=== PATIENT | male | born 1955 | race Caucasian/White ===

== ENCOUNTER 2020-02-09 14:56 | Day surgery (SDC) | payer MEDICARE ==
[2020-02-06 15:42] LABS: BASOPHILS # (AUTO) 0.1 X10'3 (0-0.2); BASOPHILS % (AUTO) 0.8 % (0-1); EOSINOPHILS # (AUTO) 0.1 X10'3 (0-0.9); EOSINOPHILS % (AUTO) 1.5 % (0-6); HEMOGLOBIN 14.1 g/dl (14.0-17.9); LYMPHOCYTES # (AUTO) 1.8 X10'3 (1.1-4.8); LYMPHOCYTES % (AUTO) 25.7 % (21-51); MEAN CORPUSCULAR HGB CONC 33.5 g/dL (33.0-36.5); MEAN CORPUSCULAR VOLUME 89.4 FL (78-98); MEAN PLATELET VOLUME 11.3 FL (7.4-10.4); MONOCYTES # (AUTO) 0.5 X10'3 (0-0.9); NEUTROPHILS # (AUTO) 4.4 X10'3 (1.8-7.7); PLATELET COUNT 185 X10'3 (140-440); RED BLOOD COUNT 4.69 X10'6 (4.70-6.10); RED CELL DISTRIBUTION WIDTH 13.5 % (11.5-14.5); WHITE BLOOD COUNT 6.8 X10'3 (4.5-11.0)
[2020-02-06 15:44] LABS: ALBUMIN 3.6 G/DL (3.4-5.0); ANION GAP 5 (8-16); BLOOD UREA NITROGEN 14 MG/DL (7-18); BUN/CREATININE RATIO 15.9 (5.4-32.0); CALCIUM 9.3 MG/DL (8.5-10.1); CHLORIDE 102 MMOL/L (99-107); CREATININE 0.88 MG/DL (0.60-1.10); GLUCOSE 357 MG/DL (70-104); POTASSIUM 3.9 MMOL/L (3.5-5.1); SODIUM 137 MMOL/L (135-145); TOTAL CARBON DIOXIDE 29.6 MMOL/L (24-32); eGFR 87 ML/MIN
[2020-02-06 15:46] LABS: PARTIAL THROMBOPLASTIN TIME 28 SECONDS (22-32)
[2020-02-09] VITALS (8 sets, daily range): BP systolic 95–131; BP diastolic 47–82
[~2020-02-09] VITALS: Ht 182.9 cm; Wt 90.3 kg
[2020-02-09] MEDS ORDERED: diphenhydrAMINE 25mg capsule PO PRN (15:15)
[2020-02-09] MEDS ORDERED: normal saline 1,000 ML IV SCH (15:15)
[2020-02-09] MEDS ORDERED: LORazepam 0.5 MG tablet PO PRN (15:15)
[2020-02-09] MEDS ORDERED: LIDOcaine/PRILOcaine 5gm cream TP ONE (15:20)
[2020-02-09] MEDS ORDERED: APIX5TAB3 PO (15:44)
[2020-02-09] MEDS ORDERED: SILD50TA PO (15:44)
[2020-02-09] MEDS ORDERED: INSU100I29 SQ (15:44)
[2020-02-09] MEDS ORDERED: DULO60CA65 PO (15:44)
[2020-02-09] MEDS ORDERED: METF-950 PO (15:44)
[2020-02-09] MEDS ORDERED: FLO0.4C PO (15:44)
[2020-02-09] MEDS ORDERED: fentaNYL/PF 50MCG/1 ML 2ML syringe ONE (17:34)
[2020-02-09] MEDS ORDERED: midazolam 2 mg/2 ml injection ONE (17:34)
[2020-02-09] MEDS ORDERED: heparin 1,000unit/ml 10ml vial 10 ML ONE (17:34)
[2020-02-09] MEDS ORDERED: verapamil 2.5 mg/ml inj IV ONE (17:34)
[2020-02-09] MEDS ORDERED: nitroGLYCERIN-Tridil 50MG/D5W 250 ML IV ONE (17:34)
[2020-02-09] MEDS ORDERED: LIDOcaine 1% (10mg/ml)w/preservative injection 20ml MDV ONE (17:34)
[2020-02-09] MEDS ORDERED: iohexol 350MG/ML 100ml bottle IV ONE ×2 (17:35→18:14)
[2020-02-09] MEDS ORDERED: iohexol 350 MG/ML 50ML vial IV ONE (18:04)
[2020-02-09] MEDS ORDERED: clopidogrel 300mg tablet ONE (18:32)
[2020-02-09] MEDS ORDERED: nitroGLYCERIN 0.4mg SUBLingual tab SL ONE (18:47)
[2020-02-09] MEDS ORDERED: OXAZEpam 15mg capsule PO PRN (19:05)
[2020-02-09] MEDS ORDERED: ondansetron/PF 4mg/2ml inj IV PRN (19:05)
[2020-02-09] MEDS ORDERED: proCHLORperazine 10 MG/2 ml inj IV PRN (19:05)
[2020-02-09] MEDS ORDERED: nitroGLYCERIN 0.4mg SUBLingual tab SL PRN (19:05)
[2020-02-09] MEDS ORDERED: aspirin 81mg tab.chew PO ONE (19:05)
[2020-02-09] MEDS ORDERED: HYDROcodone/acetaminophen 5mg/325mg tablet PO PRN (19:05)
[2020-02-09] MEDS ORDERED: HYDROcodone/acetaminophen 10/325mg tab PO PRN (19:05)
== END 2020-02-09 20:30 | disposition home or self-care (01) ==
LOC: SSTAY O 14:56
PROVIDERS: ATTEND Student in an Organized Health Care Education/Training Program
DX: R94.39 Abnormal result of other cardiovascular function study (principal); I25.10 Atherosclerotic heart disease of native coronary artery without angina pectoris; I10 Essential (primary) hypertension; E78.5 Hyperlipidemia, unspecified; E11.9 Type 2 diabetes mellitus without complications; I48.0 Paroxysmal atrial fibrillation; Z79.899 Other long term (current) drug therapy; Z95.0 Presence of cardiac pacemaker
CPT/HCPCS: 36415; 80048; 82948; 85025; 85610; 85730; 93005; 93458; 99152; 99153; C1725; C1751; C1769; C1874; C1894; C9600; J1644; J2001; J2250; J3010; J7030; Q0163; Q9967; 92920; A4620; A5120; J3490

== ENCOUNTER 2022-02-03 13:50 | Day surgery (SDC) | payer MEDICARE ==
[2022-01-30 09:21] LABS: BASOPHILS # (AUTO) 0.1 X10'3 (0-0.2); BASOPHILS % (AUTO) 0.9 % (0-1); EOSINOPHILS # (AUTO) 0.2 X10'3 (0-0.9); EOSINOPHILS % (AUTO) 2.5 % (0-6); HEMATOCRIT 44.7 % (42.0-52.0); HEMOGLOBIN 15.1 g/dl (14.0-17.9); LYMPHOCYTES # (AUTO) 1.8 X10'3 (1.1-4.8); LYMPHOCYTES % (AUTO) 26.4 % (21-51); MEAN CORPUSCULAR HEMOGLOBIN 30.2 PG (27.0-31.0); MEAN CORPUSCULAR HGB CONC 33.9 g/dL (33.0-36.5); MEAN PLATELET VOLUME 11.1 FL (7.4-10.4); MONOCYTES # (AUTO) 0.6 X10'3 (0-0.9); MONOCYTES % (AUTO) 8.8 % (2-12); NEUTROPHILS # (AUTO) 4.2 X10'3 (1.8-7.7); NEUTROPHILS % (AUTO) 61.4 % (42-75); PLATELET COUNT 176 X10'3 (140-440); RED BLOOD COUNT 5.01 X10'6 (4.70-6.10); RED CELL DISTRIBUTION WIDTH 13.6 % (11.5-14.5); WHITE BLOOD COUNT 6.9 X10'3 (4.5-11.0)
[2022-01-30 09:35] LABS: APTT 29 SECONDS (22-32)
[2022-01-30 09:43] LABS: ALBUMIN 3.8 G/DL (3.4-5.0); ANION GAP 8 (8-16); BLOOD UREA NITROGEN 17 MG/DL (7-18); BUN/CREATININE RATIO 18.7 (5.4-32.0); CALCIUM 9.5 MG/DL (8.5-10.1); CHLORIDE 102 MMOL/L (99-107); CHOLESTEROL 178 MG/DL (0-200); CREATININE 0.91 MG/DL (0.60-1.10); GLUCOSE 173 MG/DL (70-104); HDL CHOLESTEROL 44 MG/DL (35-60); LDL CHOLESTEROL 116 MG/DL (50-100); POTASSIUM 3.7 MMOL/L (3.5-5.1); SODIUM 139 MMOL/L (135-145); TRIGLYCERIDES 85 MG/DL (20-135); eGFR 83 ML/MIN
[2022-01-30 12:03] LABS: LARGE PLATELETS MODERATE; PLATELET ESTIMATE NORMAL
[2022-02-03] VITALS (7 sets, daily range): BP systolic 102–120; BP diastolic 65–95
[~2022-02-03] VITALS: Ht 182.9 cm; Wt 96.3 kg
[~2022-02-03 13:50] MED LIST: APIX5TAB3 PO; DULO60CA65 PO; FLO0.4C PO; INSU100I29 SQ; METF-1203 PO; SILD50TA PO
[2022-02-03] MEDS ORDERED: diphenhydrAMINE 25mg capsule PO PRN (14:20)
[2022-02-03] MEDS ORDERED: LORazepam 0.5 MG tablet PO PRN (14:20)
[2022-02-03] MEDS ORDERED: normal saline 1,000 ML IV SCH (14:20)
[2022-02-03] MEDS ORDERED: EMPA10TA PO (14:33)
[2022-02-03] MEDS ORDERED: METO-384 PO (14:33)
[2022-02-03] MEDS ORDERED: SPIR25TA5 PO (14:33)
[2022-02-03] MEDS ORDERED: METF-436 PO (14:33)
[2022-02-03] MEDS ORDERED: ATOR40TA PO (14:33)
[2022-02-03] MEDS ORDERED: SEMA2PEN SQ (14:33)
[2022-02-03] MEDS ORDERED: LIDOcaine 1% (10mg/ml) 2ml vial ONE (17:47)
[2022-02-03] MEDS ORDERED: fentaNYL/PF 50MCG/1 ML 2ML syringe ONE (17:47)
[2022-02-03] MEDS ORDERED: verapamil 2.5 mg/ml inj IV ONE (17:47)
[2022-02-03] MEDS ORDERED: iohexol 350MG/ML 100ml bottle IV ONE (17:48)
[2022-02-03] MEDS ORDERED: heparin 1,000unit/ml 10ml vial 10 ML ONE (17:48)
[2022-02-03] MEDS ORDERED: nitroGLYCERIN-Tridil 50MG/D5W 250 ML IV ONE (17:48)
[2022-02-03] MEDS ORDERED: midazolam 1 mg/ML 2ml injection ONE (17:48)
[2022-02-03 18:54] LABS: ISTAT HGB ART 13.3 g/dl (14.0-17.9); ISTAT Hct ART 39 %PCV (42-52); ISTAT O2 SATURATION ARTERIAL 92 % (95-98); ISTAT SOURCE ART
[2022-02-03] MEDS ORDERED: HYDROcodone/acetaminophen 10/325mg tab PO PRN (19:40)
[2022-02-03] MEDS ORDERED: HYDROcodone/acetaminophen 5mg/325mg tablet PO PRN (19:40)
[2022-02-04 06:07] LABS: ISTAT Hct MIX 39 %PCV (42-52); ISTAT O2 SATURATION MIX VENOUS 66 % (60-80); ISTAT SOURCE VEN
== END 2022-02-03 21:00 | disposition home or self-care (01) ==
LOC: SSTAY O 13:50
PROVIDERS: ATTEND Student in an Organized Health Care Education/Training Program
DX: R94.39 Abnormal result of other cardiovascular function study (principal); I25.10 Atherosclerotic heart disease of native coronary artery without angina pectoris; I48.0 Paroxysmal atrial fibrillation; I25.82 Chronic total occlusion of coronary artery; I49.5 Sick sinus syndrome; I50.22 Chronic systolic (congestive) heart failure; E11.9 Type 2 diabetes mellitus without complications; I50.9 Heart failure, unspecified; I73.9 Peripheral vascular disease, unspecified; Z79.899 Other long term (current) drug therapy; Z98.890 Other specified postprocedural states
CPT/HCPCS: 36415; 80048; 80061; 82803; 82948; 85014; 85025; 85610; 85730; 93005; 93460; 99152; A6258; C1751; C1769; C1894; J1644; J2250; J3010; J3490; J7030; Q0163; Q9967; 85008; 99153; A6402